=== PATIENT | male | born 1940 | race Caucasian/White ===

== ENCOUNTER 2018-05-05 14:45 | Inpatient (IN) | payer MEDICARE ==
[~2018-05-05] VITALS: Ht 175.3 cm; Wt 65.9 kg
--- NOTE | ~2018-05-05 | PN ---
PATIENT:NORMA KAM MEDICAL RECORD: [id number] LOCATION:[facility]112 ADMISSION DATE: 05/05/18 PROGRESS NOTE DATE OF SERVICE: 05/20/2018 SUBJECTIVE: The patient's case was discussed with staff. He has no new complaint. OBJECTIVE: The patient denies intent to harm himself or others. He is quite impaired cognitively and only partially oriented. ASSESSMENT: No change in diagnoses. PLAN: Supportive and educational interventions were made. Long-term prognosis is guarded. The patient will be maintained on current medicines. TRANSINT:[id number] Voice Confirmation ID: [id number] DOCUMENT ID: [id number] RAJI BEAR MD at 1323 CC: [id number] DICTATION DATE: 05/20/18 1224 MUD MIXER OPERATOR: 05/20/18 1241 ADM IN [place] [address] [place] [address]
--- NOTE | ~2018-05-05 | PN ---
PATIENT:NORMA KAM MEDICAL RECORD: [id number] LOCATION:[facility] ADMISSION DATE: 05/05/18 PROGRESS NOTE DATE OF SERVICE: 05/14/2018 SUBJECTIVE: The patient's case was discussed with staff. He has no new complaint. OBJECTIVE: The patient is not eating well. He has been encouraged to eat. Staff has tried to feed him and when I discussed this with him he says he will try to eat better, but he is not. He has not been aggressive. He is severely impaired cognitively. ASSESSMENT: No change in diagnoses. PLAN: The patient will be treated with Megace at a dose of 40 mg twice daily. Megace is being used to treat his underlying appetite suppression. He will be monitored for clinical changes associated with its use. His long-term prognosis is guarded. TRANSINT:[id number] Voice Confirmation ID: [id number] DOCUMENT ID: [id number] RAJI BEAR MD at 1710 CC: [id number] DICTATION DATE: 05/14/18 1407 ARCHITECTURE INTERNSHIP: 05/14/18 1413 [facility] IN [facility] [address] [place] [address]
--- NOTE | ~2018-05-05 | PN ---
PATIENT:NORMA KAM MEDICAL RECORD: [id number] LOCATION:[facility] Brown112 ADMISSION DATE: 05/05/18 PROGRESS NOTE DATE OF SERVICE: 05/09/2018 SUBJECTIVE: The patient's case was discussed with staff. He has no new complaint. OBJECTIVE: The patient has been very agitated. He is actually calm right now, but he received p.r.n. Haldol and Ativan at 3:00 a.m. this morning. He only slept 2 hours despite receiving that medication, he was agitated and disruptive. He is also not eating well. ASSESSMENT: No change in diagnoses. PLAN: The patient is severely disruptive and agitated and is not manageable in a intermediate while in this condition. I am going to discontinue the Seroquel, which was started last night and will change to Geodon on a scheduled and p.r.n. basis. TRANSINT:[id number] Voice Confirmation ID: [id number] DOCUMENT ID: [id number] RAJI BEAR MD at 0949 CC: [id number] DICTATION DATE: 05/09/18816 DOCK OPERATIONS SUPERVISOR: 05/09/18 0911 ADM IN [facility] [address] [place] [address]
--- NOTE | ~2018-05-05 | DS ---
PATIENT:NORMA KAM :38 MEDICAL RECORD: [id number] DISCHARGE SUMMARY ADMISSION DATE: 05/05/18 DISCHARGE DATE: 05/21/18 PSYCHIATRIC DISCHARGE SUMMARY IDENTIFYING DATA: The patient is 77 years old and he was admitted to the hospital on a voluntary basis because of agitation. The patient lives in the [facility] and was sent to the Emergency Room at [facility] because he was agitated. The patient was observed to have psychotic symptoms and was severely impaired. He was only oriented to person. He had no real recollection of the events that occurred at the [facility]. He did require p.r.n. medications to help with his agitated behavior. HOSPITAL COURSE: The patient was admitted to the hospital and fully evaluated from both medical, psychological, and social standpoint. He was treated with both memory enhancing and mood stabilizing medications. He did show improvement through the course of the hospitalization and he was subsequently transitioned back to the [facility]. DISCHARGE DIAGNOSES: AXIS I: Senile dementia of the Alzheimer's type with behavioral disturbances. AXIS II: None. AXIS III: Atrial fibrillation, hypertension, and hyperlipidemia. AXIS IV: Moderate stressors. AXIS V: Global assessment of functioning is 35. PLAN: At the time of discharge, the patient was in good behavioral control and had no active thoughts of harming himself or others. He was tolerating his medications well. He had very limited insight about his situation, but was not acutely dangerous to himself or others and follow up is to be with his primary care [facility] physician. TRANSINT:[id number] Voice Confirmation ID: [id number] DOCUMENT ID: [id number] RAJI BEAR MD at 1434 CC: [id number] DICTATION DATE: 05/25/18 1515 ARMATURE STRAIGHTENER: 05/25/18 1930 DIS IN 05/21/18 [facility] [address] [place] [id number]
--- NOTE | ~2018-05-05 | PN ---
PATIENT:NORMA KAM MEDICAL RECORD: [id number] LOCATION:[facility] ADMISSION DATE: 05/05/18 PROGRESS NOTE DATE OF SERVICE: 05/15/2018 SUBJECTIVE: The patient's case was discussed with staff. He has no new complaint. OBJECTIVE: The patient is eating much better today. He has been started on Megace and it seems to be having some beneficial effects. He is only oriented to person. He is severely impaired cognitively. ASSESSMENT: No change in diagnoses. PLAN: Current medicines and therapies have been reviewed and will be maintained. Long-term prognosis is guarded. TRANSINT:[id number] Voice Confirmation ID: [id number] DOCUMENT ID: [id number] RAJI BEAR MD at 1014 CC: [id number] DICTATION DATE: 05/15/18 173 BRICKMASON CONTRACTOR: 05/15/18 1801 ADM IN [facility] [address] [place] [address]
--- NOTE | ~2018-05-05 | PN ---
PATIENT:NORMA KAM MEDICAL RECORD: [id number] LOCATION:[facility] Brown112 ADMISSION DATE: 05/05/18 PROGRESS NOTE DATE OF SERVICE: 05/11/2018 SUBJECTIVE: The patient's case was discussed with staff. He has no new complaint. OBJECTIVE: This patient is sleeping reasonably well, especially considering the fact that he sleeps a lot during the day. His appetite still is not what it should be, but efforts are being made to encourage him to eat better. He has been agitated and did receive some p.r.n. Haldol and Ativan today for the agitation. He has no recollection of this. ASSESSMENT: No change in diagnoses. PLAN: Supportive and educational interventions were made. Long-term prognosis is guarded. TRANSINT:[id number] Voice Confirmation ID: [id number] DOCUMENT ID: [id number] RAJI BEAR MD at 1402 CC: [id number] DICTATION DATE: 05/11/18 1433 REGULATORY TECHNICIAN: 05/11/18 1506 ADM IN [place] [address] [place] [address]
--- NOTE | ~2018-05-05 | PN ---
PATIENT:NORMA KAM MEDICAL RECORD: [id number] LOCATION:[facility] Brown112 ADMISSION DATE: 05/05/18 PROGRESS NOTE DATE OF SERVICE: 05/08/2018 SUBJECTIVE: The patient's case was discussed with staff. He has no new complaint. OBJECTIVE: The patient is in good behavioral control with limited insight about his condition. He tolerates his medicines well. ASSESSMENT: No change in diagnoses. PLAN: Supportive and educational interventions were made. Long-term prognosis is guarded. He has not slept well. I am going to treat him with a low dose of Seroquel, which will help with the sleep, but the Seroquel is being used to treat his underlying thought disorganization. He was p.r.n. last night because of agitation that is associated with his thought disorganization. TRANSINT:[id number] Voice Confirmation ID: [id number] DOCUMENT ID: [id number] RAJI BEAR MD at 0742 CC: [id number] DICTATION DATE: 05/08/18 1449 WATER TREATMENT OPERATOR: 05/08/18 1520 ADM IN [place] [address] [place] [address]
--- NOTE | ~2018-05-05 | PN ---
PATIENT:NORMA KAM MEDICAL RECORD: [id number] LOCATION:KevinEDIE Brown112 ADMISSION DATE: 05/05/18 PROGRESS NOTE DATE OF SERVICE: 05/13/2018 SUBJECTIVE: The patient's case was discussed with staff. He has no new complaint. OBJECTIVE: The patient denies intent to harm himself or others. He generally tolerates his medicines well. He does appear a little bit sleepy today. ASSESSMENT: No change in diagnoses. PLAN: The patient did not take his medicine this morning. When asked about this, he has no explanation. I am going to hold his Geodon for now. I think he looks a little more sedated than I would like and the only or most likely cause of that is the Geodon. I may restart it at a lower dose tomorrow or I may change to a different medication, but for today, I want to see how he does without it. TRANSINT:[id number] Voice Confirmation ID: [id number] DOCUMENT ID: [id number] RAJI BEAR MD at 1329 CC: [id number] DICTATION DATE: 05/13/18 1342 PROFESSIONAL SECURITY OFFICER: 05/13/18 1440 ADM IN [facility] [address] [place] [address]
--- NOTE | ~2018-05-05 | PN ---
PATIENT:NORMA KAM MEDICAL RECORD: [id number] LOCATION:[facility] Brown112 ADMISSION DATE: 05/05/18 PROGRESS NOTE DATE OF SERVICE: 05/19/2018 SUBJECTIVE: The patient's case was discussed with staff. He has no new complaint. OBJECTIVE: The patient denies intent to harm himself or others. He tolerates his medicines well. He did not sleep well last night. ASSESSMENT: No change in diagnoses. PLAN: I am going to prescribe trazodone at a dose of 50 mg at bedtime to help with sleep consolidation. The patient is better with regarding his appetite and behaviors, and I would anticipate he may be discharged soon. TRANSINT:[id number] Voice Confirmation ID: [id number] DOCUMENT ID: [id number] RAJI BEAR MD at 1203 CC: [id number] DICTATION DATE: 05/19/18 1522 INTERIOR DESIGN TEACHER: 05/19/18 1600 ADM IN [place] [address] [place] [address]
--- NOTE | ~2018-05-05 | PN ---
PATIENT:NORMA KAM MEDICAL RECORD: [id number] LOCATION:ALB[facility] Tomlinson ADMISSION DATE: 05/05/18 PROGRESS NOTE DATE OF SERVICE: 05/17/2018 SUBJECTIVE: The patient's case was discussed with staff. He has no new complaint. OBJECTIVE: The patient is tolerating his medicines well. He has been fairly irritable this morning and quite confused, but no more confused than he has been. I do not observe any psychotic symptoms today. ASSESSMENT: No change in diagnoses. PLAN: The patient is taking Megace. I would like for him to eat a little better than he is. So far, he is not making much progress in that area. TRANSINT:[id number] Voice Confirmation ID: [id number] DOCUMENT ID: [id number] RAJI BEAR MD at 1333 CC: [id number] DICTATION DATE: 05/17/18 1115 DEPARTMENT HEAD COLLEGE OR UNIVERSITY: 05/17/18 1233 ADM IN [facility] [address] [place] [address]
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
--- NOTE | ~2018-05-05 | PN ---
PATIENT:NORMA KAM MEDICAL RECORD: [id number] LOCATION:ALB[facility] Tomlinson ADMISSION DATE: 05/05/18 PROGRESS NOTE DATE OF SERVICE: 05/21/2018 SUBJECTIVE: The patient's case was discussed with staff. He has no new complaint. OBJECTIVE: The patient is in good behavioral control with limited insight about his condition. He does tolerate his medicines well. Eye contact is fair. Concentration is fair. ASSESSMENT: No change in diagnoses. PLAN: The patient is going to be transitioned back to the long term today. His long-term followup will be with the long term physician or his primary care physician. He is not showing any evidence of acute or direct dangerousness to himself or others. TRANSINT:[id number] Voice Confirmation ID: [id number] DOCUMENT ID: [id number] RAJI BEAR MD at 1350 CC: [id number] DICTATION DATE: 05/21/18 1356 CHECKER IN: 05/21/18 1404 DIS IN 05/21/18 [facility] [address] [place] [address]
--- NOTE | ~2018-05-05 | PN ---
PATIENT:NORMA KAM MEDICAL RECORD: [id number] LOCATION:ALBERT Brown112 ADMISSION DATE: 05/05/18 PROGRESS NOTE DATE OF SERVICE: 05/12/2018 SUBJECTIVE: The patient's case was discussed with staff. He has no new complaint. OBJECTIVE: The patient is in good behavioral control with limited insight about his condition. He does tolerate his medicines well. He is eating reasonably well. He is sleeping reasonably well. ASSESSMENT: No change in diagnoses. PLAN: Current medicines have been reviewed and will be maintained. Long-term prognosis is guarded. TRANSINT:[id number] Voice Confirmation ID: [id number] DOCUMENT ID: [id number] RAJI BEAR MD at 1315 CC: [id number] DICTATION DATE: 05/12/18 1441 M1 ARMOR CREWMAN: 05/12/18 1527 ADM IN [place] [address] [place] [address]
--- NOTE | ~2018-05-05 | PN ---
PATIENT:NORMA KAM MEDICAL RECORD: [id number] LOCATION:ALBERT Tomlinson ADMISSION DATE: 05/05/18 PROGRESS NOTE DATE OF SERVICE: 05/16/2018 SUBJECTIVE: The patient's case was discussed with staff. He has no new complaint. OBJECTIVE: The patient is in good behavioral control with limited insight about his condition. He tolerates his medicines well. He is severely impaired cognitively and a very high fall risk. He is constantly trying to stand up and walk on his own without assistance and when reminded of this, redirected, and asked to wait for someone to help him, he is very compliant, but he cannot remember the information and a minute later, he tries to get up again. It is a restlessness that may be related to anxiety, but I do not want to cause sedation with the patient, so I am just going to observe him today and I am not going to make any medicine changes. ASSESSMENT: No change in diagnoses. PLAN: As above. The patient will be maintained on current medicines. TRANSINT:[id number] Voice Confirmation ID: [id number] DOCUMENT ID: [id number] RAJI BEAR MD at 1040 CC: [id number] DICTATION DATE: 05/16/18 1040 BUSINESS PLANNING ANALYST: 05/16/18 1104 ADM IN [place] [address] [place] [address]
--- NOTE | ~2018-05-05 | PN ---
PATIENT:NORMA KAM MEDICAL RECORD: [id number] LOCATION:ALBERT SaleemChanel112 ADMISSION DATE: 05/05/18 PROGRESS NOTE DATE OF SERVICE: 05/10/2018 SUBJECTIVE: The patient's case was discussed with staff. He has no new complaint. OBJECTIVE: The patient did not sleep very well last night. He was significantly agitated. He did require p.r.n. medicine, specifically Haldol and Ativan to calm him. ASSESSMENT: No change in diagnoses. PLAN: The patient was started on a scheduled dose of Geodon yesterday with limited beneficial effect so far. I am going to maintain current medicines in the hope that it will allow him to improve as the medicines dose builds. TRANSINT:[id number] Voice Confirmation ID: [id number] DOCUMENT ID: [id number] RAJI BEAR MD at 1427 CC: [id number] DICTATION DATE: 05/10/18 1024 INSULATION CUPOLA OPERATOR: 05/10/18 1255 ADM IN [place] [address] [place] [address]
--- NOTE | ~2018-05-05 | PN ---
PATIENT:NORMA KAM MEDICAL RECORD: [id number] LOCATION:ALBERT SaleemChanel112 ADMISSION DATE: 05/05/18 PROGRESS NOTE DATE OF SERVICE: 05/18/2018 SUBJECTIVE: The patient's case was discussed with staff. He has no new complaint. OBJECTIVE: The patient is in good behavioral control with limited insight about his condition. He does tolerate his medicines well. ASSESSMENT: No change in diagnoses. PLAN: Brief supportive and educational interventions were made. Long-term prognosis is guarded. The patient will have his Namenda increased slightly. TRANSINT:[id number] Voice Confirmation ID: [id number] DOCUMENT ID: [id number] RAJI BEAR MD at 1406 CC: [id number] DICTATION DATE: 05/18/18 1417 STATISTICS MANAGER: 05/18/18 1534 ADM IN [facility] [address] [place] [address]
--- NOTE | ~2018-05-05 | PN ---
PATIENT:NORMA KAM MEDICAL RECORD: [id number] LOCATION:ALBERT Brown112 ADMISSION DATE: 05/05/18 PROGRESS NOTE DATE OF SERVICE: 05/07/2018 SUBJECTIVE: The patient's case was discussed with staff. He has no new complaint. OBJECTIVE: The patient is in good behavioral control with limited insight about his condition. He does tolerate his medicines well. He is extremely impaired cognitively. He received an injection of Haldol 50 mg in the decanoate form in the middle of March. I am not sure if this was the first injection he received or one of several, but in my opinion, this is not appropriate. ASSESSMENT: No change in diagnoses. PLAN: At this point, I am holding all of the patient's psychotropic medications. If he has had multiple doses of the Haldol Decanoate, it will take 4 months for it to be appreciably depleted from his system. If this was the first dose that he has had of the medication, it will take 3 months to be appreciably depreciated. His long-term prognosis is guarded. I understand the frustrations involved in trying to address behavior problems and those with advanced dementias, but a high dose of a long-acting high-potency antipsychotic medication is something I strongly disagree with. TRANSINT:[id number] Voice Confirmation ID: [id number] DOCUMENT ID: [id number] RAJI BEAR MD at 1223 CC: [id number] DICTATION DATE: 05/07/18 1346 MANAGER BIOLOGICS: 05/07/18 1624 ADM IN [place] [address] [place] [address]
[~2018-05-05 14:45] MED LIST: HALDOL DECA100 MG/M1 IM
[2018-05-05 17:40] VITALS: BP 122/68; BMI 21.4
[2018-05-05 18:01] LABS: BASOPHILS 0.4 % (0-2); EOSINOPHILS 2.5 % (0-7); HEMATOCRIT 41.9 % (42.0-54.0); HEMOGLOBIN 14.3 g/dL (13.5-17.5); IMMATURE GRANULOCYTES 0.1 % (0-5); LYMPHOCYTES 22.6 % (15-50); MCH 33.3 pg (26.0-34.0); MCHC 34.1 g/dL (31.0-37.0); MCV 97.4 fL (80.0-100.0); MEAN PLATELET VOLUME 9.7 fL (7.4-10.4); MONOCYTES 15.6 % (2-11); NEUTROPHILS 58.8 % (40-80); PLATELET COUNT 160 10x3/uL (130-400); RDW 13.1 % (11.5-14.5); WBC 6.9 10x3/uL (4.8-10.8)
[2018-05-05 18:32] LABS: ALBUMIN 3.2 g/dL (3.4-5.0); ALKALINE PHOSPHATASE 68 U/L (46-116); ALT (SGPT) 37 U/L (10-68); BILIRUBIN - TOTAL 0.54 mg/dL (0.2-1.3); CALC OSMOLALITY 274 mosm/kg (275-300); CARBON DIOXIDE 29.4 mmol/L (21.0-32.0); CHLORIDE - SERUM 100 mmol/L (98-107); CHOL - HDL RATIO 4.9 ratio (2.3-4.9); CHOLESTEROL, TOTAL 192 mg/dL (0-200); CREATININE - SERUM 0.9 mg/dL (0.6-1.3); GLUCOSE 130 mg/dL (74-106); HDL CHOLESTEROL 39 mg/dL (32-96); LDL CHOLESTEROL 134 mg/dL (0-100); LDL-HDL RATIO 3.4 ratio (1.5-3.5); POTASSIUM - SERUM 3.9 mmol/L (3.5-5.1); PROTEIN - SERUM 7.1 g/dL (6.4-8.2); SODIUM 136 mmol/L (136-145); THYROID STIMULATING HORMONE 2.55 uIU/mL (0.36-3.74); TRIGLYCERIDE 98 mg/dL (30-200); UREA NITROGEN 14 mg/dL (7-18); VALPROIC ACID (DEPAKOTE) 8.8 ug/mL (50.0-100.0); eGFR NON AFRICAN AMERICAN 87 mL/min (90-120)
[2018-05-05 21:12] VITALS: BP 165/83
[2018-05-06] MEDS ORDERED: ASPIRIN EC81 M1 PO (07:44)
[2018-05-06] MEDS ORDERED: STOOL SOFTENER100 M1 PO (07:45)
[2018-05-06] MEDS ORDERED: MELATONIN 3 MG1 TAB PO (07:47)
[2018-05-06] MEDS ORDERED: DEPAKOTE SPRIN125 MG PO (07:47)
[2018-05-06] MEDS ORDERED: MULTIPLE VITAMI1 TA1 PO (07:48)
[2018-05-06] MEDS ORDERED: PLAVIX75 MG PO (07:50)
[2018-05-06] MEDS ORDERED: ZOCOR10 MG PO (07:50)
[2018-05-06] MEDS ORDERED: KLONOPIN0.5 MG PO (07:53)
[2018-05-06] MEDS ORDERED: REMERON15 MG PO (07:54)
[2018-05-06] MEDS ORDERED: DESERYL100 MG PO (07:54)
[2018-05-06] MEDS ORDERED: ACETAMINOPHEN325 MG PO (07:55)
[2018-05-06] MEDS ORDERED: ARTIFICIAL TEAR15 ML EACH EYE (07:56)
[2018-05-06] MEDS ORDERED: DULCOLAX10 MG/SUPP RC (07:57)
[2018-05-06] MEDS ORDERED: DULCOLAX5 MG PO (07:58)
[2018-05-06] MEDS ORDERED: IMODIUM2 MG PO (07:59)
[2018-05-06] MEDS ORDERED: MILK OF MAGNESI30 ML PO (08:00)
[2018-05-06] MEDS ORDERED: MYLANTA / MAALO30 ML PO (08:01)
[2018-05-06 08:15] VITALS: BP 118/85
[2018-05-06 10:12] LABS: APPEARANCE CLEAR (CLEAR); BILIRUBIN NEGATIVE (NEGATIVE); COLOR YELLOW (YELLOW); GLUCOSE NEGATIVE (NEGATIVE); KETONE NEGATIVE (NEGATIVE); NITRITE NEGATIVE (NEGATIVE); PROTEIN NEGATIVE (NEGATIVE)
[2018-05-06 10:43] VITALS: BMI 21.4
[2018-05-06 20:10] VITALS: BP 129/79
[2018-05-07 06:16] LABS: RAPID PLASMA REAGIN Non Reactive (Non Reactive)
[2018-05-07 07:35] LABS: FOLATE (FOLIC ACID) - SERUM 7.9 ng/mL (>3.0)
[2018-05-07 10:21] LABS: VITAMIN D 25 HYDROXY 47.9 ng/mL (30.0-100.0)
[2018-05-07 10:47] VITALS: BP 136/78
[2018-05-07 19:48] VITALS: BP 120/56
[2018-05-08 09:55] VITALS: BP 125/74
[2018-05-08 21:20] VITALS: BP 112/67
[2018-05-09 08:00] VITALS: BP 128/90
[2018-05-09 20:06] VITALS: BP 124/64
[2018-05-10 07:00] VITALS: BP 126/90
[2018-05-10 20:21] VITALS: BP 107/73
[2018-05-11 07:00] VITALS: BP 161/84
[2018-05-11 10:53] VITALS: Ht 175.3 cm; Wt 65.9 kg
[2018-05-12 06:56] VITALS: BP 141/74
[2018-05-12 07:00] VITALS: BP 112/64
[2018-05-12 19:41] VITALS: BP 106/61
[2018-05-13 10:22] VITALS: BP 157/94
[2018-05-13 20:15] VITALS: BP 124/75
[2018-05-14 09:00] VITALS: BP 120/69
[2018-05-14 19:23] VITALS: BP 118/71
[2018-05-15 09:14] VITALS: BP 123/72
[2018-05-15 20:28] VITALS: BP 95/55
[2018-05-16 07:58] VITALS: BP 111/71
[2018-05-16 10:12] VITALS: BP 111/71
[2018-05-16 20:39] VITALS: BP 121/72
[2018-05-17 07:00] VITALS: BP 142/82
[2018-05-17 20:05] VITALS: BP 91/41
[2018-05-18 07:00] VITALS: BP 114/54
[2018-05-18 19:25] VITALS: BP 100/54
[2018-05-19 08:49] VITALS: BP 141/67
[2018-05-19 21:22] VITALS: BP 110/62; BP 138/79
[2018-05-20 08:05] VITALS: BP 135/73
[2018-05-20] MEDS ORDERED: TRAZODONE HCL50 MG PO (12:25)
[2018-05-20] MEDS ORDERED: NAMENDA5 MG PO (12:25)
[2018-05-20] MEDS ORDERED: MEGACE40 MG PO (12:25)
[2018-05-20 20:55] VITALS: BP 119/83
[2018-05-21 11:03] VITALS: BP 131/78
== END 2018-05-21 13:30 | DRG 57 ==
LOC: D.PSYCH 14:45
PROVIDERS: Psychiatry & Neurology Psychiatry
DX: G30.1 Alzheimer's disease with late onset (principal); F02.81 Dementia in other diseases classified elsewhere, unspecified severity, with behavioral disturbance; I48.91 Unspecified atrial fibrillation; I10 Essential (primary) hypertension; E78.5 Hyperlipidemia, unspecified; R26.89 Other abnormalities of gait and mobility; K59.00 Constipation, unspecified; G47.00 Insomnia, unspecified; E53.8 Deficiency of other specified B group vitamins; R00.0 Tachycardia, unspecified

== ENCOUNTER → 2018-06-26 12:34 | Outpatient (CLI) | payer MEDICARE ==
[2018-05-11 10:53] VITALS: BMI 21.4
[~2018-06-26 12:34] MED LIST changes: +ACETAMINOPHEN325 MG PO; +ARTIFICIAL TEAR15 ML EACH EYE; +ASPIRIN EC81 M1 PO; +DEPAKOTE SPRIN125 MG PO; +DESERYL100 MG PO; +DULCOLAX10 MG/SUPP RC; +DULCOLAX5 MG PO; +IMODIUM2 MG PO; +KLONOPIN0.5 MG PO; +MEGACE40 MG PO; +MELATONIN 3 MG1 TAB PO; +MILK OF MAGNESI30 ML PO; +MULTIPLE VITAMI1 TA1 PO; +MYLANTA / MAALO30 ML PO; +NAMENDA5 MG PO; +PLAVIX75 MG PO; +REMERON15 MG PO; +STOOL SOFTENER100 M1 PO; +TRAZODONE HCL50 MG PO; +ZOCOR10 MG PO
== END | disposition home or self-care (01) ==
LOC: D.RAD 06-25 13:00
DX: R13.10 Dysphagia, unspecified (principal)